=== PATIENT | female | born 1935 | race Caucasian/White ===

== ENCOUNTER 2020-01-19 10:02 | Emergency (ER) | payer OTHER ==
[~2020-01-19] VITALS: Ht 165.1 cm; Wt 59.0 kg
[2020-01-19 14:46] VITALS: BP 138/84
== END 2020-01-19 14:46 ==
LOC: ER 10:02
DX: M25.461 Effusion, right knee (principal); M79.661 Pain in right lower leg; I10 Essential (primary) hypertension; E78.00 Pure hypercholesterolemia, unspecified; K21.9 Gastro-esophageal reflux disease without esophagitis; Z91.011 Allergy to milk products; X58.XXXA Exposure to other specified factors, initial encounter; Y93.89 Activity, other specified; Y92.89 Other specified places as the place of occurrence of the external cause; Y99.8 Other external cause status